=== PATIENT | male | born 1985 | race Hispanic/Latino ===

== ENCOUNTER 2019-10-10 21:41 | Emergency (ER) | payer OTHER ==
[~2019-10-10] VITALS: Ht 180.3 cm; Wt 99.8 kg
[2019-10-10] MEDS ORDERED: ONDANSETRON HCL 4 MG ORAL DISINTEGRATING TAB PO ONE (22:00)
[2019-10-10] MEDS ORDERED: IBUPROFEN 200 MG TAB PO ONE (22:00)
[2019-10-10] MEDS ORDERED: ACETAMINOPHEN 325 MG TAB PO ONE (22:00)
--- NOTE | 2019-10-10 22:09 | Emergency Department Note ---
History of Present Illnes History of Present Illness Chief Complaint: Extremity Trauma/Pain History of Present Illness This is a 34 year old male accidentally fell at work, injured his right elbow, distally. He tried to go on but the pain got worse and it got swollen . he is right handed Historian: Patient Arrival Mode: Car Rn Office Required: No Onset (how long ago): hour(s) Radiation: non-radiation Severity: severe Duration (how long): hour(s) Timing of current episode: constant Progression: worsening Chronicity: new Relieving factors: immobilization Exacerbating factors: movement Associated symptoms: denies other symptoms Treatments prior to arrival: none Past Medical/Family History Physician Review I have reviewed the patient's past medical and family history. Any updates have been documented here. Past Medical History Recent Fever: No Clinical Suspicion of Infectio: No New/Unexplained Change in Ment: No Past Medical History: None Other Surgery: right ankle surgeries Social History Smoking Cessation: Never Smoker Alcohol Use: Social Any Illegal Drug Use: No TB Exposure/Symptoms: No Physically hurt or threatened: No Family History Family history of heart diseas: No Other Any Pre-Existing Lines (PICC,: No Review of Systems Review of Systems Constitutional: no symptoms EENTM: no symptoms Cardiovascular: no symptoms Respiratory: no symptoms Gastrointestinal: no symptoms Genitourinary: no symptoms Musculoskeletal: as per HPI, joint pain, joint swelling Neurological: no symptoms Psychological: no symptoms Endocrine: no symptoms Hematological/Lymphatic: no symptoms Review of other systems All other systems reviewed and negative. Physical Exam Related Data Allergies: Coded Allergies: Penicillins (Verified Allergy, Unknown, 10/10/19) Physical Exam CONSTITUTIONAL Constitutional: well-developed, well-nourished HENT HENT: normocephalic, atraumatic, oropharynx clear/moist, nose normal HENT L/R: left ext ear normal, right ext ear normal EYES Eyes: PERRL, conjunctivae normal NECK Neck: ROM normal PULMONARY Pulmonary: effort normal, breath sounds normal CARDIOVASCULAR Cardiovascular: regular rhythm, heart sounds normal, capillary refill normal, normal rate GASTROINTESTINAL Abdominal: soft, nontender, bowel sounds normal GENITOURINARY Genitourinary: exam deferred SKIN Skin: warm, dry MUSCULOSKELETAL Musculoskeletal: tenderness, swelling, other (right elbow swelling and limitted ROM due to pain, unable to extend fully and flex at 90 degree. He keeps his right elbow at about 120 degree, radial and ulnar pulses good. Neurovascular intact distally) NEUROLOGICAL Neurological: alert, oriented x 3, no gross motor or sensory deficits PSYCHOLOGICAL Psychological: mood/affect normal, judgement normal Results Imaging Imaging results reviewed: Yes Impressions fracture of right elbow Procedures Orthopedic Splinting/Casting Side: right Upper exremity injury location: elbow Upper extremity immobilizer: volar splint Additional comments volar extended to posterior of RUE (long arm), keeping it at most comfortable position 120 degree. neurovascular in tact distally. Pt said he is much more comfortable after the splint Critical Care Time Subsequent provider I assumed direction of critical care for this patient from another provider of my specialty. Assessment & Plan Assessment & Plan Problems: (1) Closed fracture of head of right ulna (2) Acute pain due to trauma (3) Right elbow pain Assessment & Plan 34 yo YO MONTE fell at work, injured his right elbow with obvious deformity, will do xray look for fx, he will need orthopedic f/u Depart Disposition: HOME, SELF-CARE Medications in the ED Ibuprofen 600 mg NOW ONCE PO ; Start 10/10/19 at 22:00; Stop 10/10/19 at 22:01; Status UNV Ondansetron HCl 4 mg ONCE ONCE PO ; Start 10/10/19 at 22:00; Stop 10/10/19 at 22:01; Status UNV Acetaminophen 650 mg NOW ONCE PO ; Start 10/10/19 at 22:00; Stop 10/10/19 at 22:01; Status UNV Attestation Provider Attestation Case discussed with Dr Tal Heard, splint and f/u the next day Tylenol #4 Zofran 4 mg Ibuprofen 200mg AERONAUTICAL INSPECTOR risk score: no record, low risk KENNY STRATTON MD October 10, 2019 22:08
[2019-10-10] MEDS ORDERED: HYDROCODONE/APAP 5MG-325MG TAB PO ONE (22:15)
[2019-10-10] MEDS ORDERED: ONDANSETRON HCL 4 MG ORAL DISINTEGRATING TAB ONE (22:17)
[2019-10-10] MEDS ORDERED: IBUPROFEN 600 MG TAB ONE (22:17)
[2019-10-10] MEDS ORDERED: HYDROCODONE/APAP 5MG-325MG TAB ONE (22:18)
--- NOTE | 2019-10-10 23:11 | Diagnostic Imaging Report ---
Exam: Right elbow radiographs-3 views History: Status post fall. Comparison: None. Findings/Impression: There is an obliquely oriented, intraarticular fracture of the olecranon/proximal ulna. There is approximately 4 mm in maximal displacement. No evidence of dislocation. Small elbow joint effusion and surrounding soft tissue edema. Signed by: Dr. Laura Will MD on 10/10/2019 11:08 PM
== END 2019-10-10 23:10 | disposition home or self-care (01) ==
LOC: FSED 21:41
DX: S52.691A Other fracture of lower end of right ulna, initial encounter for closed fracture (principal); W18.30XA Fall on same level, unspecified, initial encounter; Y99.0 Civilian activity done for income or pay
CPT/HCPCS: Q0162

== ENCOUNTER 2019-11-02 19:35 | Inpatient (IN) | payer OTHER ==
[~2019-11-02] VITALS: Ht 180.3 cm; Wt 102.1 kg
--- OUTSIDE RECORDS SUMMARY | 2019-11-02 19:38 | XMS REPORT | Continuity of Care Document ---
Author Author [facility] t Organization [facility] Address [address] [place] [address] Phone Unavailable Care Team Providers Care Marketing Secretary Name Role Phone GISELLE JAZMYNE PCP Caridad STRATTON Attphygabrielle Unavailable Payers Payer Name Policy Type Policy Number Effective Date Expiration Date S ource Problems Condition Name Condition Details Condition Category Status Onset Date Resolution Date Last Treatment Date Treating Clinician Comments Source Acute pain due to trauma Problem Active [facility] Right elbow pain Problem Active [facility] Allergies, Adverse Reactions, Alerts Allergy Name Allergy Type Status Severity Reaction(s) Onset Date Inacti ve Date Treating Clinician Comments Source Penicillin Allergy to substance Active 2019-10-10 00:00:00 [facility] Penicillins DA Active U 2015-07-13 00:00:00 [facility] Social History Social Habit Start Date Stop Date Quantity Comments Source Sex Assigned At 1985 00:00:00 1985 00[birth year] Male [facility] Medications This patient has no known medications. Vital Signs Vital Name Observation Time Observation Value Comments Source Weight 2019-10-10 22:00:00 220 [lb_av] [facility] BMI (Body Mass Index) 2019-10-10 22:00:00 30.7 kg/m2 [facility] Procedures This patient has no known procedures. Plan of Care Planned Activity Planned Date Details Comments Source Instructions Fractures - Elbow [facility] Encounters Start Date/Time End Date/Time Encounter Type Admission Type Attendi [facility] Care Department Encounter ID Source 2019-10-10 21:41:00 2019-10-10 23:10:00 Departed Emergency Room 1 KENNY STRATTON [facility] [id number] [facility] Results Test Description Test Time Test Comments Results Result Comments Source - XR FLUOROSCOPY 0-60 MIN 2019-10-20 16:49:00 F AX: Makenzie Hensley MD [phone] [place]: St: REG -- Name: FIORDALIZA SAHA [facility] : 1985 Age/S: 34/M [address] [place] [address] Unit #: [id number] Loc: [place] [address] Phys: Makenzie Hensley MD Acct: [id number] Dis Date: Status: REG [facility] PHONE #: [phone] Exam Date: 10/20/20191648 FAX #: [phone] Reason: RIGHT ELBOW FRACTURE EXAMS: CPT CODE: [id number] XR FLUOROSCOPY 0-60 MIN 22969 Study: - XR FLUOROSCOPY 0-60 MIN 10/20/2019 4:46 PM Patient Name: FIORDALIZA SAHA MR: [id number] DATE: 10/20/2019 4:46 PM : 1985; Age: 34 years y/o Male Ordering Physician: Makenzie Hensley MD Clinical Indication: RIGHT ELBOW FRACTURE Intraprocedural fluoroscopy was provided by the Department of Radiology. Any images obtained were interpreted by the surgeon intraoperatively. Fluoroscopy time: 87.4 seconds Reference Air Kerma: 1.4 mGy SL: [id number] at 1649 Reported and signed by: Dlalas Perez D.O. CC: Makenzie Hensley MD Technologist: Soumya Le, RT(R), RTT Trnscrd Date/Time/By: 10/20/2019 (1648) : By: [email or web address] Orig Print D/T: S: 10/20/2019 (0614) PAGE 1 Signed Report Novel Coronavirus 2018 Inhouse 2019-10-18 21:33:00 Test Item Novel Coronavirus 2018 Inhouse (test code = COVNONPUI) Negative Negative BASIC METABOLIC [id number] 10:25:00* Test Item Value Reference Range Interpretation Comments SODIUM (test code = NA) 139 mEq/L 134-147 N POTASSIUM (test code = K) 4.3 mEq/L 3.4-5.0 N CHLORIDE (test code = CL) 103 mEq/L 100-108 N CARBON DIOXIDE (test code = CO2) 30 mEq/L 21-33 N ANION GAP (test code = GAP) 10 0-20 N GLUCOSE (test code = GLU) 94 mg/dL 70-110 N BLOOD UREA NITROGEN (test code = BUN) 15 mg/dL 7-18 N GLOMERULAR FILTRATION RATE (test code = GFR) 97.8 105-110 L Units of measure = ml/min/1.73 m2 CREATININE (test code = CREAT) 0.9 mg/dL 0.6-1.3 N CALCIUM (test code = CA) 9.3 mg/dL 8.0-10.5 N BASIC METABOLIC [id number] 10:20:00* Test Item Value Reference Range Interpretation Comments SODIUM (test code = NA) 139 mEq/L 134-147 N POTASSIUM (test code = K) 4.3 mEq/L 3.4-5.0 N CHLORIDE (test code = CL) 103 mEq/L 100-108 N CARBON DIOXIDE (test code = CO2) 30 mEq/L 21-33 N ANION GAP (test code = GAP) 10 0-20 N GLUCOSE (test code = GLU) 94 mg/dL 70-110 N BLOOD UREA NITROGEN (test code = BUN) 15 mg/dL 7-18 N GLOMERULAR FILTRATION RATE (test code = GFR) 105-110 CREATININE (test code = CREAT) mg/dL 0.6-1.3 CALCIUM (test code = CA) 9.3 mg/dL 8.0-10.5 N CBC W/AUTO [id number] 10:13:00* Test Item Value Reference Range Interpretation Comments WHITE BLOOD CELL (test code = WBC) 7.45 x10 3/uL 4.5-11.0 N RED BLOOD CELL (test code = RBC) 4.74 x10 6/uL 4.00-5.60 N HEMOGLOBIN (test code = HGB) 14.6 g/dL 12.5-16.9 N HEMATOCRIT (test code = HCT) 43.7 % 37.5-50.7 N MEAN CELL VOLUME (test code = MCV) 92.2 fL 81.0-99.0 N MEAN CELL HGB (test code = MCH) 30.8 pg 27.0-33.0 N MEAN CELL HGB CONCETRATION (test code = MCHC) 33.4 g/dL 33.0-37. 0 N RED CELL DISTRIBUTION WIDTH CV (test code = RDW) 11.8 % 11.5- 14.5 N RED CELL DISTRIBUTION WIDTH SD (test code = RDW-SD) 40.1 fL 37 .0-54.0 N PLATELET COUNT (test code = PLT) 244 x10 3/uL 150-400 N MEAN PLATELET VOLUME (test code = MPV) 9.2 fL 7.0-9.0 H NEUTROPHIL % (test code = NT%) 65.4 % 56.0-77.0 N IMMATURE GRANULOCYTE % (test code = IG%) 0.3 % 0.0-2.0 N LYMPHOCYTE % (test code = LY%) 22.6 % 14.0-32.0 N MONOCYTE % (test code = MO%) 8.9 % 4.8-9.0 N EOSINOPHIL % (test code = EO%) 2.3 % 0.3-3.7 N BASOPHIL % (test code = BA%) 0.5 % 0.0-2.0 N NUCLEATED RBC % (test code = NRBC%) 0.0 % 0-0 N NEUTROPHIL # (test code = NT#) 4.88 x10 3/uL 2.0-7.6 N IMMATURE GRANULOCYTE # (test code = IG#) 0.02 x10 3/uL 0.00-0.03 N LYMPHOCYTE # (test code = LY#) 1.68 x10 3/uL 1.0-3.8 N MONOCYTE # (test code = MO#) 0.66 x10 3/uL 0.1-0.8 N EOSINOPHIL # (test code = EO#) 0.17 x10 3/uL 0.0-0.2 N BASOPHIL # (test code = BA#) 0.04 x10 3/uL 0.0-0.2 N NUCLEATED RBC # (test code = NRBC#) 0.00 x10 3/uL 0.0-0.1 N MANUAL DIFF REQUIRED (test code = MDIFF) NO ELBOW 3 VIEW RT - [id number] 23:04:00 [place] [address] Patient Name: FIORDALIZA SAHA MR #: [id number] : 1985 Age/Sex: 34/M Req #: [id number] Adm Physician: Ordered by: KENNY STRATTON MD Report #: [id number] Location: [facility] Room/Bed: Procedure: [id number] HOPD/ELBOW 3 VIEW RT - HOPD Exam Date: 10/10/19 Exam Time: 2201 REPORT STATUS: [facility] History: Status post fall. Comparison: N one. Findings/Impression: There is an obliquely oriented, intraarticular fracture of the olecranon/proximal ulna. There is approximately 4 mm in connie l displacement. No evidence of dislocation. Small elbow joint effusion and zuleyma rounding soft tissue edema. Signed by: Dr. Trenton Bentley MD on 10/10/2019 11 :08 PM Dictated By: TRENTON BENTLEY MD [id number] Transcribed By: AAYUSH on 10/10/19 0064 COPY TO: KENNY OCHOA MD
--- NOTE | 2019-11-02 20:20 | NUR ---
CLEANED WOUND WITH SHANTEL HEX. INFORMED MD OF PUS POURNING FROM A SMALL OPENING OF SUTURE LINE. WOUND CX OBTAINED BY MD. NOTED 2 AREAS WITH OPENINGS WITH PUS COMING OUT. APPLIED TELFA/STERIL 4X4'S/KERLIX/MARIA ELENA WRAPS. PT TOLERATED WELL.
[2019-11-02] MEDS ORDERED: IBUPROFEN 600 MG TAB PO STA (20:54)
--- NOTE | 2019-11-02 20:54 | Emergency Department Note ---
History of Present Illnes History of Present Illness Chief Complaint: General Medicine Complaints History of Present Illness This is a 34 year old male with a history of a right ulnar fracture on 10/10/2019 status post ORIF on 10/20/2019 at [facility] by Dr. Epifanio Hensley. Patient states that he went for a 7 day follow-up which was "normal." Patient states that one week ago he began to run a low-grade fever and just not feeling well. He has some increased pain at the surgical site. He was seen again by his surgeon, who found no signs of wound infection and sent him to have a COVID test, on 10/27/2019 which was negative. Patient was seen again by orthopedics on 10/31/2019 and placed on Bactrim DS, and he has taken 4 doses so far. Patient returned to work this week, and noticed today after work that there was some bloody drainage on his dressing, which he had not seen before. He presented to the ED this evening, for evaluation of his postop surgical wound site. Patient has had a low-grade fever, just over 100, intermittently for the past 7 days. He denies any chills, nausea, vomiting, diarrhea, or rash. Historian: Patient Arrival Mode: Car Additional Treatment RETAIL BUSINESS ANALYST: Bactrim DS 1 po bid, started on 10/31/2019. Museum Director Required: No Onset (how long ago): week(s) (1) Location: right elbow Quality: throbbing Radiation: Reports non-radiation Severity: moderate Onset quality: gradual Duration (how long): week(s) (1) Timing of current episode: constant Progression: worsening Chronicity: new Context: Reports recent surgery (10/20/2019 s/p ORIF right elbow with placement of hardware) Relieving factors: none Exacerbating factors: other (pain with palpation) Associated symptoms: Reports fever/chills; Denies confusion, Denies diaphoresis, Denies nausea/vomiting, Denies rash, Denies shortness of breath Treatments prior to arrival: other (Bactrim DS) Previous service: medications given, other (surgery 10/20/2019) Past Medical/Family History Physician Review I have reviewed the patient's past medical and family history. Any updates have been documented here. Past Medical History Recent Fever: Yes Clinical Suspicion of Infectio: Yes New/Unexplained Change in Ment: No Past Medical History: None Other Surgery: R-ELBOW, R-ANKLE-, R-THUMB Social History Smoking Cessation: Never Smoker Alcohol Use: Occasional Any Illegal Drug Use: No TB Exposure/Symptoms: No Physically hurt or threatened: No Family History Family history of heart diseas: No Other Last Tetanus: UNK Any Pre-Existing Lines (PICC,: No Is patient up to date on immun: No Last Flu: NONE Last Pneumovax: NA Review of Systems Review of Systems Constitutional: Reports fever; Denies chills, Denies malaise, Denies weakness EENTM: Reports no symptoms Cardiovascular: Reports no symptoms Respiratory: Reports no symptoms Gastrointestinal: Denies diarrhea, Denies nausea, Denies vomiting Musculoskeletal: Reports joint pain (pain and swelling of right elbow), Reports joint swelling Integumentary: Reports change in color (redness of right elbow) Neurological: Reports no symptoms Psychological: Reports no symptoms Hematological/Lymphatic: Reports no symptoms Review of other systems All other systems reviewed and negative. Physical Exam Related Data Allergies: Coded Allergies: Penicillins (Verified Allergy, Unknown, 10/10/19) Triage Vital Signs Vital Signs Date Time Temp Pulse Resp B/P (MAP) Pulse Ox O2 Delivery O2 Flow Rate FiO2 11/02/19 19:50 100.8 104 Vital signs reviewed: Yes Physical Exam CONSTITUTIONAL Constitutional: Reports well-developed, Reports well-nourished; Denies ill appearing HENT HENT: Reports normocephalic, Reports atraumatic, Reports oropharynx bobbi ar/moist, Reports nose normal HENT L/R: Reports left ext ear normal, Reports right ext ear normal EYES Eyes: Reports PERRL, Reports conjunctivae normal NECK Neck: Reports ROM normal, Reports supple PULMONARY Pulmonary: Reports effort normal, Reports breath sounds normal CARDIOVASCULAR Cardiovascular: Reports regular rhythm, Reports heart sounds normal, Reports capillary refill normal, Reports normal rate; Denies murmur GASTROINTESTINAL Abdominal: Reports soft, Reports nontender, Reports bowel sounds normal GENITOURINARY Genitourinary: Reports exam deferred SKIN Skin: Reports warm, Reports erythema, Reports other (right elbow swollen with mild erythema and warmth, purulent drainage from the surgical site, with increasing amount with palpation of soft tissue surrounding the surgical site;) MUSCULOSKELETAL Musculoskeletal: Reports edema, Reports tenderness (right elbow;), Reports swelling NEUROLOGICAL Neurological: Reports alert, Reports oriented x 3 PSYCHOLOGICAL Psychological: Reports mood/affect normal Results Laboratory Laboratory UA - negative CBC - WBC = 12, H/H = 11.7/35.5; CMP - K = 3.5, Alk phos = 168, ALT = 157, AST = 93 Lab results reviewed: Yes Assessment & Plan Medical Decision Making MDM - Pt being transferred to [facility] for medical admission for post-op infection/abscess of right elbow. Dr. Szymanski is admitting, with Dr. Hensley, Orthopedist who performed surgery, consulting. I have spoken to both of these physician. Reassessment Reassessment 21:15 - called answering service for patient's Orthopedist, Dr. Hensley, to discuss case. 21:30 - discussed case, antibiotics given and wound and blood cultures obtained. She will consult on patient. Hospitalist to admit patient at [facility]. 21:45 - transfer center for [facility] contacted for transfer to [facility] 22:00 - no beds available at [facility], as they are holding patients in the ER. Will contact Dr. Hensley, to see where else she might have privileges. 22:05 - spoke iwth Dr. Hensley, who has privileges at [facility]. WIll contact Medicine infection control practitioner for admission, Dr. Szymanski. Dr. Hensley to consult 22:20 - bed secured at [facility]. 22:25 - case discussed with Dr. Szymanski, who is agreeable to admission. Dr. Lovett to consult. Assessment & Plan Final Impression: (1) Postoperative wound infection (2) Right elbow pain (3) Leukocytosis (4) Elevated liver enzymes Depart Disposition: ADMITTED (to [facility], med surg, with Dr. Szymanski.) Last Vital Signs Date Time Temp Pulse Resp B/P (MAP) Pulse Ox O2 Delivery O2 Flow Rate FiO2 11/02/19 22:55 102.8 120 18 133/68 98 Date Time Temp Pulse Resp B/P (MAP) Pulse Ox O2 Delivery O2 Flow Rate FiO2 11/02/19 19:50 100.8 104 Home Meds Active Scripts Sulfamethoxazole/Trimethoprim (BACTRIM DS TABLET) 1 Each Tablet, 1 TAB PO BID for infection for 10 Days, #20 TAB Prov:ARTI MEDRANO MD 11/02/19 Medications in the ED Vancomycin 1 gram IV ARTI MEDRANO MD Nov 02, 2019 20:54
[2019-11-02] MEDS ORDERED: SODIUM CHLORIDE 0.9% 1000ML 1,000 ML IV SCH (21:00)
[2019-11-02] MEDS ORDERED: MORPHINE SULFATE INJ 4 MG/ML INJ 1ML IV STA (21:02)
[2019-11-02] MEDS ORDERED: ONDANSETRON HCL INJ 2MG/ML 2ML 2 MG/ML VIAL IV STA (21:02)
--- NOTE | 2019-11-02 21:11 | NUR ---
INFORMED CHRISTEN SMITH OF TRANSFER TO [facility]
[2019-11-02] MEDS ORDERED: CEFAZOLIN SOD 1 GM VIAL IV SCH (21:15)
[2019-11-02] MEDS ORDERED: MORPHINE SULFATE INJ 4 MG/ML INJ 1ML ONE (21:27)
[2019-11-02] MEDS ORDERED: ONDANSETRON HCL INJ 2MG/ML 2ML 2 MG/ML VIAL ONE (21:43)
[2019-11-02] MEDS ORDERED: CEFAZOLIN SOD 1 GM/NS 50ML 50 ML IV ONE ×2 (21:45→23:12)
[2019-11-02] MEDS ORDERED: VANCOMYCIN 1GM/NS 250 ML 250 ML IV ONE (22:15)
[2019-11-02] MEDS ORDERED: SODIUM CHLORIDE FLUSH 10 ML SYR INJ PRN (22:45)
--- NOTE | 2019-11-02 22:45 | NUR ---
CALLED [facility] FOR TRANSPORT
[2019-11-02] MEDS ORDERED: ACETAMINOPHEN 325 MG TAB PO PRN (23:00)
[2019-11-02] MEDS ORDERED: IBUPROFEN 600 MG TAB PO PRN (23:00)
[2019-11-02] MEDS ORDERED: ACETAMINOPHEN 325 MG TAB PO ONE (23:00)
[2019-11-02] MEDS ORDERED: HYDROCODONE/APAP 5MG-325MG TAB PO ONE (23:00)
[2019-11-02] MEDS ORDERED: ACETAMINOPHEN 325 MG TAB ONE (23:01)
[2019-11-02] MEDS ORDERED: BACTRIM DS TAB1 EACH PO (23:04)
--- OUTSIDE RECORDS SUMMARY | 2019-11-02 23:09 | XMS REPORT | Continuity of Care Document ---
Author Author [facility] t Organization [facility] Address [address] [place] [address] Phone Unavailable Care Team Providers Care First Dyer Name Role Phone GISELLE JAZMYNE PCP Caridad STRATTON Attphygabrielle Unavailable Payers Payer Name Policy Type Policy Number Effective Date Expiration Date S ource Problems Condition Name Condition Details Condition Category Status Onset Date Resolution Date Last Treatment Date Treating Clinician Comments Source Acute pain due to trauma Problem Active [facility] Right elbow pain Problem Active [facility] Allergies, Adverse Reactions, Alerts Allergy Name Allergy Type Status Severity Reaction(s) Onset Date Inacti ve Date Treating Clinician Comments Source Penicillin Allergy to substance Active 2019-10-10 00:00:00 [facility] Penicillins DA Active U 2015-07-13 00:00:00 [facility] Social History Social Habit Start Date Stop Date Quantity Comments Source Sex Assigned At 1985 00:00:00 1985 00[birth year]:00 Male [facility] Medications This patient has no known medications. Vital Signs Vital Name Observation Time Observation Value Comments Source Weight 2019-10-10 22:00:00 220 [lb_av] [facility] BMI (Body Mass Index) 2019-10-10 22:00:00 30.7 kg/m2 [facility] Procedures This patient has no known procedures. Plan of Care Planned Activity Planned Date Details Comments Source Instructions Fractures - Elbow [facility] Encounters Start Date/Time End Date/Time Encounter Type Admission Type Attendi [facility] Care Department Encounter ID Source 2019-10-10 21:41:00 2019-10-10 23:10:00 Departed Emergency Room 1 KENNY STRATTON [facility] [id number] [facility] Results Test Description Test Time Test Comments Results Result Comments Source - XR FLUOROSCOPY 0-60 MIN 2019-10-20 16:49:00 F AX: Makenzie Hensley MD [phone] [place]: St: REG -- Name: FIORDALIZA SAHA [facility] : 1985 Age/S: 34/M [address] [place] [address] Unit #: [id number] Loc: [place] [address] Phys: Makenzie Hensley MD Acct: [id number] Dis Date: Status: REG [facility] PHONE #: [phone] Exam Date: 10/20/20191648 FAX #: [phone] Reason: RIGHT ELBOW FRACTURE EXAMS: CPT CODE: [id number] XR FLUOROSCOPY 0-60 MIN 30771 Study: - XR FLUOROSCOPY 0-60 MIN 10/20/2019 4:46 PM Patient Name: FIORDALIZA SAHA MR: [id number] DATE: 10/20/2019 4:46 PM : 1985; Age: 34 years y/o Male Ordering Physician: Makenzie Hensley MD Clinical Indication: RIGHT ELBOW FRACTURE Intraprocedural fluoroscopy was provided by the Department of Radiology. Any images obtained were interpreted by the surgeon intraoperatively. Fluoroscopy time: 87.4 seconds Reference Air Kerma: 1.4 mGy SL: [id number] at 1649 Reported and signed by: [place] Perez D.O. CC: Makenzie Hensley MD Technologist: Soumya Le, RT(R), RTT Trnscrd Date/Time/By: 10/20/2019 (1648) : By: [email or web address] Orig Print D/T: S: 10/20/2019 (5475) PAGE 1 Signed Report Novel Coronavirus 2018 Inhouse 2019-10-18 21:33:00 Test Item Novel Coronavirus 2018 Inhouse (test code = COVNONPUI) Negative Negative BASIC METABOLIC [id number] 10:25:00* Test Item Value Reference Range Interpretation [...] CA) 9.3 mg/dL 8.0-10.5 N BASIC METABOLIC [id number] 10:20:00* Test Item Value Reference Range Interpretation [...] CA) 9.3 mg/dL 8.0-10.5 N CBC W/AUTO [id number] 10:13:00* Test Item Value Reference Range Interpretation [...] MDIFF) NO ELBOW 3 VIEW RT - [id number] 23:04:00 [place] [address] Patient Name: FIORDALIZA SAHA MR #: [id number] : 1985 Age/Sex: 34/M Req #: [id number] Adm Physician: Ordered by: KENNY STRATTON MD Report #: [id number] Location: [facility] Room/Bed: Procedure: [id number] HOPD/ELBOW 3 VIEW RT - HOPD Exam Date: 10/10/19 Exam Time: 2201 REPORT STATUS: [facility] History: Status post fall. Comparison: N one. Findings/Impression: There is an obliquely oriented, intraarticular fracture of the olecranon/proximal ulna. There is approximately 4 mm in connie l displacement. No evidence of dislocation. Small elbow joint effusion and zuleyma rounding soft tissue edema. Signed by: Dr. Trenton Bentley MD on 10/10/2019 11 :08 PM Dictated By: TRENTON BENTLEY MD 2992 Transcribed By: AAYUSH on 10/10/19 3813 COPY TO: KENNY OCHOA MD
--- NOTE | 2019-11-02 23:15 | NUR ---
COVID TEST SWAB OBTAINED WEARING APPROPRIATE PPE. CALLED FOR ROD WELDER
--- NOTE | 2019-11-02 23:25 | NUR ---
ATTEMPTED TO CALL REPORT AT THIS TIME. JILL HERNESTO IN WITH ANOTHER PT AND WILL CALL BACK FOR REPORT
--- NOTE | 2019-11-02 23:32 | NUR ---
REC'D CALL BACK FROM JILL ERIC. REPORT GIVEN.
[2019-11-03] VITALS (8 sets, daily range): BP systolic 107–116; BP diastolic 68–80
--- NOTE | 2019-11-03 00:05 | NUR ---
REPORTED TO EMS. COVID TEST SENT WITH COMBER FIXER.
[2019-11-03] MEDS: SODIUM CHLORIDE 0.9% 1000ML 1,000 ML IV SCH ×2 (00:37→13:12)
--- NOTE | 2019-11-03 01:00 | NUR ---
patient received to room 296 via stretcher from [facility]. pain minimal at this time. ivf infusing without difficulty. clarisse wrap/brace noted to right elbow. patient encouraged to keep right arm elevated to reduce swelling. admit assessment/history obtained. patient instructed of npo status for incision and drainage right elbow tomorrow. consent obtained for I+D and placed on chart. call morgan placed within reach. patient instructed to call for assistance when needed.
[2019-11-03] MEDS: MORPHINE SULFATE 2 MG/ML SYR 1ML IV PRN ×4 (01:40→22:14)
[2019-11-03] MEDS: ONDANSETRON HCL INJ 2MG/ML 2ML 2 MG/ML VIAL IV PRN ×4 (01:40→22:14)
--- NOTE | 2019-11-03 01:40 | NUR ---
patient medicated with morphine 4mg and zofran 4mg for c/o right elbow pain at this time. right elbow remains elevated.
[2019-11-03 06:21] LABS: BASOPHILS # (AUTO) 0.1 (0.0-0.1); BASOPHILS % 0.5 % (0.0-1.0); EOSINOPHILS # (AUTO) 0.2 (0.0-0.4); EOSINOPHILS % 2.3 % (0.0-6.0); HEMATOCRIT 34.1 % (38.2-49.6); HEMOGLOBIN 11.1 g/dL (14.0-18.0); LYMPHOCYTES # (AUTO) 1.9 (1.0-3.2); LYMPHOCYTES % 18.2 % (18.0-39.1); MEAN CORPUSCULAR HEMOGLOBIN 30.3 pg (28-32); MEAN CORPUSCULAR HGB CONC 32.6 g/dL (31-35); MEAN CORPUSCULAR VOLUME 93.2 fL (81-99); MONOCYTES # (AUTO) 1.2 (0.2-0.8); NEUTROPHILS # (AUTO) 6.8 (2.1-6.9); NEUTROPHILS % 66.3 % (38.7-80.0); PLATELET COUNT 303 x10e3/uL (140-360); RED BLOOD COUNT 3.66 x10e6/uL (4.3-5.7)
[2019-11-03 06:42] LABS: INR 0.89; PROTHROMBIN TIME 12.6 seconds (11.9-14.5)
[2019-11-03 06:43] LABS: PARTIAL THROMBOPLASTIN TIME 39.4 seconds (23.8-35.5)
[2019-11-03 06:53] LABS: ALANINE AMINOTRANSFERASE 139 IU/L (0-55); ALBUMIN 2.8 g/dL (3.5-5.0); ALBUMIN/GLOBULIN RATIO 0.8 (0.8-2.0); ALKALINE PHOSPHATASE 154 IU/L (40-150); ANION GAP 13.9 mmol/L (8-16); BLOOD UREA NITROGEN 8 mg/dL (7-26); BUN/CREATININE RATIO 10 (6-25); CALCIUM 9.2 mg/dL (8.4-10.2); CARBON DIOXIDE 22 mmol/L (22-29); CHLORIDE 108 mmol/L (98-107); EST GLOMERULAR FILTRATION RATE > 60 ML/MIN (60-); GLUCOSE 103 mg/dL (74-118); POTASSIUM 3.9 mmol/L (3.5-5.1); SODIUM 140 mmol/L (136-145)
--- NOTE | 2019-11-03 07:30 | NUR ---
PT UP IN BED DENIES PAIN NO DISTRESS NTOED.
--- NOTE | 2019-11-03 10:00 | NUR ---
PT TRANSPORTED TO OR VIA STRETCHER.
[2019-11-03] MEDS ORDERED: BACITRACIN 50,000 UNIT VIAL ONE ×2 (10:11→10:56)
[2019-11-03] MEDS ORDERED: VANCOMYCIN HCL 1 GM VIAL ONE (11:01)
[2019-11-03] MEDS ORDERED: FENTANYL CITRATE/PF 100MCG/2 ML INJ ONE ×2 (11:48→13:47)
--- NOTE | 2019-11-03 12:38 | Consultation ---
DATE OF CONSULTATION: 11/03/2019 CONSULTING PHYSICIAN: Makenzie Hensley MD CHIEF COMPLAINT: Right elbow pain. HISTORY OF PRESENT ILLNESS: Hitesh Haskins has been seen in consultation at the request of Dr. Szymanski for evaluation of right elbow pain. Hitesh underwent an open reduction and internal fixation of his right displaced olecranon fracture by me on 10/20/2019 over at [facility]. He presented to our clinic approximately one week later with increased pain; however, was not noted to have any signs of postop infection at that time. He was then seen in clinic approximately one week afterwards at which point he was noted to have some faint erythema at his incisional site and Bactrim DS prescription was started. The patient reports that after starting that prescription he started to feel lot better after receiving about 4 doses of this. However, yesterday when he was at work, he started to notice some drainage from his elbow. He did have his sutures removed two days ago. He then presented to the emergency department where he was seen and transferred over to [facility] for further evaluation and care. He was started on vancomycin and Ancef while he was there as well. He reports that he is starting to feel significantly better after been started on IV antibiotics as well. No numbness or tingling into his finger. He says that his swelling and the redness has improved markedly over just a past few hours. PAST MEDICAL HISTORY: None. PAST SURGICAL HISTORY: Orthopedic surgery. 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 No smoking, drug or tobacco use. FAMILY HISTORY: Noncontributory. REVIEW OF SYSTEMS: Positive for fevers and chills, negative for numbness and tingling. PHYSICAL EXAMINATION: GENERAL: Well appearing, no acute distress. Alert and oriented x3. EXTREMITIES: Physical evaluation of the right upper extremity demonstrates dressing removed. Very mild erythema about the right elbow. Sutures have been removed from the right elbow with Steri-Strips in place; however copious drainage noted from the mid portion of the incision with purulent drainage. Tenderness about the incision. No significant pain with any gentle range of motion of the elbow. He is neurovascularly intact with intact AIN, PIN, and ulnar nerve motor function. Sensation intact to light touch to median, radial and ulnar nerve distributions. Fingers are warm and well perfused. IMAGING DATA: None. LABORATORY DATA: Laboratory evaluations demonstrates leukocytosis of 12.1. ASSESSMENT: Right elbow, postop infection, status post open reduction and internal fixation of the olecranon fracture, date of surgery 10/20/2019. PLAN: I discussed with the patient that after evaluation of his right elbow with continued pain and drainage, I recommend irrigation and debridement of the right elbow. We will plan for this to be done today. Benefits and risks of surgery were discussed with the patient, including bleeding, continued infection, need for additional surgery, damage to vascular structures, possible loss of life or limb, and knowing this elected to proceed. Consent was obtained. We will obtain cultures intraoperatively. We recommend Infectious Disease consult for further evaluation for antibiotics. We will continue to follow. MD GIA Gibson/MODL /[id number] MTDD
[2019-11-03] MEDS ORDERED: VANCOMYCIN 1GM/NS 250 ML 250 ML IV SCH (13:00)
--- NOTE | 2019-11-03 13:27 | Operative Report ---
DATE OF PROCEDURE: 11/03/2019 SURGEON: Makenzie Hensley MD ADDITIONAL ATTENDING PHYSICIAN: Makenzie Hensley MD PREPROCEDURAL DIAGNOSIS: Right elbow, postop infection. POSTPROCEDURAL DIAGNOSIS: Right elbow, postop infection. PROCEDURE PERFORMED: Right elbow irrigation and debridement of skin, subcutaneous tissue, muscle and fascia. LONG HAUL TRUCK DRIVER: None. ANESTHESIA: General. COMPLICATIONS: None. SPECIMENS: Right elbow specimen sent for anaerobic and aerobic culture. ESTIMATED BLOOD LOSS: Less than 50 mL. INDICATIONS FOR PROCEDURE: Hitesh Haskins is a 34-year-old male, who sustained a right olecranon fracture, underwent open reduction and internal fixation on 10/12/2019. He was subsequently found to have developed fevers as well as drainage from his right wound and was seen in the emergency department where he was found to have purulent drainage. He was indicated for incision and debridement. Benefits and risks of the surgery were discussed with the patient including bleeding, infection, damage to vascular structure, need for additional surgery, persistent pain, stiffness, possible loss of life or limb and knowing this, he elected to proceed. DESCRIPTION OF PROCEDURE: The patient was identified in the preoperative holding area site was marked. He was then transported to the operating room anesthesia was induced. He was placed supine to the table with to the hand table. Right upper extremity was then prepped and draped in usual sterile fashion. Preoperative antibiotics had already been given. A preprocedural timeout was called and all were in agreement and began. We used the hemostat to open up the region of draining tissue directly over the incision and the incision opened readily. Purulent fluid as well as some cloudy-appearing debris was noted to exude from the wound. This was then collected for culture. A curette was used to debride the tissue and any devitalized appearing tissue was then removed. Copious irrigation was then performed using 6 liters of normal saline with bacitracin with cysto tubing irrigation. After this was performed we then changed hemostasis. 1 g vancomycin powder was then placed into the soft tissue bed. The skin was then closed with 2-0 and 3-0 nylons. A Hemovac drain was placed prior to this. Soft sterile dressing was placed followed by a posterior elbow splint. The patient then awoken from anesthesia and taken to PACU in stable condition. POSTOPERATIVE PLAN: The patient will be returned back to his room. We will obtain Infectious Disease consult for assistance of the antibiotics. Plan for drain to be pulled tomorrow. MD GIA Gibson/JOE /[id number]
[2019-11-03] MEDS ORDERED: MIDAZOLAM HCL 2 MG/2 ML VIAL ONE (13:47)
[2019-11-03] MEDS ORDERED: KETOROLAC TROMETHAMINE 30 MG/ML VIAL ONE (14:04)
[2019-11-03] MEDS ORDERED: SEVOFLURANE INHAL SOLN 250 ML PEN BTL ONE (14:04)
[2019-11-03] MEDS ORDERED: LIDOCAINE HCL 2% LOCAL INJ 5 ML SDV VIAL INJ ONE (14:04)
[2019-11-03] MEDS ORDERED: DEXAMETHASONE SOD PHOS INJ 4 MG/ML VIAL ONE (14:04)
[2019-11-03] MEDS ORDERED: ONDANSETRON HCL INJ 2MG/ML 2ML 2 MG/ML VIAL ONE (14:04)
[2019-11-03] MEDS ORDERED: PROPOFOL IV EMULSION 10 MG/ML 20 ML VIAL ONE (14:04)
--- NOTE | 2019-11-03 18:06 | NUR ---
PT UP IN BED ,PAIN LEVEL 3 ,RT ELBOW ELEVATED ON PILLOW,
[2019-11-03] MEDS: HYDROCODONE/APAP 7.5MG-325MG 1 EA TAB PO PRN (18:41)
[2019-11-03] MEDS: CEFEPIME 2 GM/NS 0.9% 100 ML 100 ML IV SCH (18:41)
--- NOTE | 2019-11-03 19:25 | NUR ---
REceived patient awake, not in distress, call light within easy reach, advised to call for assistance when needed, right elbow elevated with pillows, hemovac drain noted, will continue to monitor patient
--- NOTE | 2019-11-03 23:01 | NUR ---
PICC line placement, CXR to verify placement done
--- NOTE | 2019-11-03 23:28 | Diagnostic Imaging Report ---
EXAMINATION: CHEST XRAY LINE PLACEMENT INDICATION: ^verify PICC line placement ^[id number] ^[id number] COMPARISON: Left PICC in place with tip projecting over inferior SVC. FINDINGS: AP view TUBES and LINES: None. LUNGS: Lungs are well inflated. There is no evidence of pneumonia or pulmonary edema. PLEURA: No pleural effusion or pneumothorax. HEART AND MEDIASTINUM: The cardiomediastinal silhouette is unremarkable. BONES AND SOFT TISSUES: No acute osseous lesion. Soft tissues are unremarkable. UPPER ABDOMEN: No free air under the diaphragm. IMPRESSION: No acute thoracic abnormality. Left PICC in place with tip projecting over inferior SVC. No visible pneumothorax. Signed by: Dr. Teodoro Solano MD on 11/03/2019 11:25 PM
[2019-11-04] VITALS (8 sets, daily range): BP systolic 131–145; BP diastolic 62–88
[2019-11-04] MEDS: VANCOMYCIN HCL 1.25 GM in SODIUM CHLORIDE 0.9% 250ML 250 ML IV SCH ×2 (00:01→12:01)
[2019-11-04] MEDS: HYDROCODONE/APAP 7.5MG-325MG 1 EA TAB PO PRN ×2 (00:38→15:15)
[2019-11-04] MEDS ORDERED: VANCOMYCIN 750MG/NS 150ML IVPB 250 ML IV SCH (01:00)
[2019-11-04] MEDS: SODIUM CHLORIDE 0.9% 1000ML 1,000 ML IV SCH ×3 (01:17→15:04)
[2019-11-04] MEDS: ZOLPIDEM TARTRATE 10 MG TAB PO PRN ×2 (01:17→20:38)
--- NOTE | 2019-11-04 05:41 | Consultation ---
DATE OF CONSULTATION: 11/03/2019 REASON FOR CONSULTATION: Right elbow infection. HISTORY OF PRESENT ILLNESS: This is a very pleasant 34-year-old male, who had a fractured to his arm when at work. He works in . On 10/20/2019, he had displaced olecranon fracture, underwent surgery by Dr. Makenzie Hensley. The patient had to have plate and screws. Postop, he was doing well. He, a week ago, started to have some redness and swollen. So, he was given oral Bactrim, but he started to have drainage from the elbow, so the patient came here, the [facility] where he is being admitted. PAST MEDICAL HISTORY: Denies. PAST SURGICAL HISTORY: As above. ALLERGIES: NKA. SOCIAL HISTORY: There is no smoking, drug abuse, or alcohol abuse. 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 FAMILY HISTORY: Noncontributory. REVIEW OF SYSTEMS: He is currently lying in bed comfortably. HEENT: Negative. PULMONARY: Negative. The patient was admitted and underwent surgery. He was found to have right elbow infection. Culture was sent. The procedure note was reviewed. His cultures are still pending. PHYSICAL EXAMINATION: GENERAL: Currently alert and oriented. Does not seem to be in acute distress. VITAL SIGNS: Stable. Currently afebrile. HEENT: Is not icteric. NECK: Supple. CHEST: Clear. HEART: S1 and S2. No murmur. ABDOMEN: Soft. LABORATORY DATA: Reviewed sodium 140, potassium 3.9. His AST 55, his ALT 139, albumin 2.8. His white count 10, hemoglobin 11. Creatinine 0.8. He underwent surgery. IMPRESSION: Postoperative infection, status post right elbow fracture in October 19 with placement of hardware, concerned about osteomyelitis with hardware infection. We will treat as such. We will put on vancomycin and cefepime. Vancomycin 15 mg/kg q.12 and cefepime 1 g q.8. The patient did well with cefazolin. We will get a PICC line. Would need 8 weeks of IV antibiotic. Weekly CBC. Weekly Chem panel. Follow up closely. Obtain a sedimentation rate C-reactive protein. We will follow. MD J CARLOS Shelton/JOE /[id number]
[2019-11-04] MEDS: ONDANSETRON HCL INJ 2MG/ML 2ML 2 MG/ML VIAL IV PRN ×3 (05:48→20:33)
[2019-11-04] MEDS: CEFEPIME 2 GM/NS 0.9% 100 ML 100 ML IV SCH ×2 (05:48→18:29)
[2019-11-04] MEDS: MORPHINE SULFATE 2 MG/ML SYR 1ML IV PRN ×3 (05:50→20:33)
--- NOTE | 2019-11-04 06:00 | NUR ---
Ok to use PICC line per Dr. Szymanski, order in the chart
[2019-11-04 06:55] LABS: BASOPHILS % 0.4 % (0.0-1.0); EOSINOPHILS # (AUTO) 0.2 (0.0-0.4); EOSINOPHILS % 1.5 % (0.0-6.0); HEMATOCRIT 29.4 % (38.2-49.6); HEMOGLOBIN 9.3 g/dL (14.0-18.0); LYMPHOCYTES % 18.4 % (18.0-39.1); MEAN CORPUSCULAR HEMOGLOBIN 29.2 pg (28-32); MEAN CORPUSCULAR HGB CONC 31.6 g/dL (31-35); MEAN CORPUSCULAR VOLUME 92.5 fL (81-99); MONOCYTES # (AUTO) 0.8 (0.2-0.8); NEUTROPHILS # (AUTO) 7.9 (2.1-6.9); NEUTROPHILS % 71.7 % (38.7-80.0); PLATELET COUNT 352 x10e3/uL (140-360); RED BLOOD COUNT 3.18 x10e6/uL (4.3-5.7); RED CELL DISTRIBUTION WIDTH 11.9 % (11.7-14.4)
--- NOTE | 2019-11-04 07:10 | NUR ---
Received patient lying in bed with eyes open. Respiration even and unlabored without SOB. Call light in reach.
--- NOTE | 2019-11-04 07:33 | NUR ---
walking rounds done with mihir RN, call light within easy reach
[2019-11-04 07:36] LABS: ALANINE AMINOTRANSFERASE 156 IU/L (0-55); ALBUMIN 2.7 g/dL (3.5-5.0); ALBUMIN/GLOBULIN RATIO 0.8 (0.8-2.0); ALKALINE PHOSPHATASE 145 IU/L (40-150); BLOOD UREA NITROGEN 11 mg/dL (7-26); BUN/CREATININE RATIO 15 (6-25); CALCIUM 8.5 mg/dL (8.4-10.2); CARBON DIOXIDE 24 mmol/L (22-29); CHLORIDE 107 mmol/L (98-107); CREATININE, SERUM 0.71 mg/dL (0.72-1.25); EST GLOMERULAR FILTRATION RATE > 60 ML/MIN (60-); GLUCOSE 108 mg/dL (74-118); SODIUM 139 mmol/L (136-145)
--- NOTE | 2019-11-04 13:13 | Progress Note ---
DATE: SUBJECTIVE: The patient is seen and evaluated. Available labs and notes reviewed. Long discussion with the patient in regard to findings on wound culture and antibiotic plan as outpatient. REVIEW OF SYSTEMS: No nausea, vomiting, fever, chills, chest pain, shortness of breath, headache, rash, dysuria. Pain seems to be controlled. PHYSICAL EXAMINATION: VITAL SIGNS: Temperature 98.7, pulse is 71, respiration 18, and blood pressure 136/67. GENERAL: Alert and oriented, no acute distress. CV: S1, S2. CHEST: Equal expansion. Clear to auscultation. No acute distress. ABDOMEN: Soft and nontender. No distention. HEENT: Moist. No pallor. No JVD. EXTREMITIES: Right upper extremity dressed and elevated. MEDICATIONS: Medication list reviewed. As far as Infectious Disease point of view, the patient is on cefepime and vancomycin IV. LABORATORY STUDIES: White count of 11.07, hemoglobin 9.3, platelet 352. Sodium 139, potassium 4, creatinine 0.71. Serology: Novel coronavirus PCR on 11/01 is pending. Microbiology; blood cultures negative 24 hours. Wound culture from right upper extremity showed few gram-positive cocci in chains, 10-25/LPF. Recheck wound culture from 11/03/2019 is pending. RADIOLOGY STUDIES: Status post PICC line placement. ASSESSMENT AND PLAN: Status post fall and a fracture of right upper extremity. Apparently, the patient had surgery done with hardware placement and postop infection. The patient received another I and D of the right elbow on 11/03/2019 at 11:30 with vancomycin powder and placement of a drainage in the right upper extremity. The cultures as mentioned above showing gram-positive cocci in the wound culture, currently on vancomycin IV and cefepime. Pain seems to be controlled. The plan is to discharge the patient as out with IV antibiotic, daptomycin 500 mg IV piggyback daily for a total of eight weeks. This antibiotic has been set up by the office of Dr. Shauna Butler. We will notify the Case Management when antibiotics are set up and ready to go. Please refer to chart for more information and discussed with Dr. Butler in details. Dictated by Mark Fontenot PA-C (Al) MD JENNY Shelton/JOE /[id number]
--- NOTE | 2019-11-04 15:33 | Progress Note ---
DATE: 11/04/2019 CONSULTING PHYSICIAN: Makenzie Hensley MD CHIEF COMPLAINT: Right elbow pain. HISTORY OF PRESENT ILLNESS: Hitesh Haskins is a 34-year-old male, who is postop day 1, status post I and D of his right postop elbow infection, status post ORIF of right olecranon fracture on 10/20/2019. The patient . He denies any fevers or chills. He said his pain is improving. No complaints. PHYSICAL EXAMINATION: EXTREMITIES: Evaluation of the right upper extremities demonstrates the splint intact. He has intact AIN, PIN, and ulnar nerve motor function. Sensation intact to light touch to median, radial and ulnar nerve distributions. Fingers are warm and well perfused. Hemovac drain is in place, draining bloody serosanguinous fluid. LABORATORY DATA: White blood cell count 11.07. Wound culture from intraoperative cultures growing staph aureus. ASSESSMENT: Postop day 1 status post right elbow irrigation and debridement for postop elbow infection, status post olecranon fracture 10/20/2019. PLAN: Doing well postop. Appreciate infectious disease assistance with antibiotic selection. The patient has PICC line already. Okay to discharge whenever appropriate per primary team and Infectious Disease. Order given for nurses to before discharge. He will keep his splint clean, dry and intact. We will see him back in clinic in 5 days for repeat evaluation. MD GIA Gibson/MODL /[id number]
--- NOTE | 2019-11-04 19:50 | NUR ---
RECEIVED PT IN BED AOX3 RT ELBOW WOUND INFECTION RT ELBOW WITH DRESSING AND WOUND VAC LEFT UPPER ARM PICC LINE . PT C/O PAIN CALL LIGHT WITH IN REACH .CONTINUE TO CARE
[2019-11-05] VITALS (8 sets, daily range): BP systolic 124–148; BP diastolic 67–83
[2019-11-05] MEDS: HYDROCODONE/APAP 7.5MG-325MG 1 EA TAB PO PRN ×4 (00:29→21:11)
[2019-11-05] MEDS: SODIUM CHLORIDE 0.9% 1000ML 1,000 ML IV SCH ×3 (03:11→21:11)
[2019-11-05] MEDS: MORPHINE SULFATE 2 MG/ML SYR 1ML IV PRN ×2 (03:15→11:20)
[2019-11-05] MEDS: CEFEPIME 2 GM/NS 0.9% 100 ML 100 ML IV SCH ×2 (06:15→17:44)
--- NOTE | 2019-11-05 06:21 | NUR ---
PT C/O PAIN AT RT ELBOW .GIVEN ORDERED PAIN MEDICATION .CALL LIGHT WITH IN REACH .CONTINUE TO MONITOR
--- NOTE | 2019-11-05 07:08 | NUR ---
BEDSIDE REPORT GIVEN TO THE ONCOMING NURSE.
[2019-11-05 07:09] LABS: BASOPHILS # (AUTO) 0.1 (0.0-0.1); BASOPHILS % 0.7 % (0.0-1.0); EOSINOPHILS # (AUTO) 0.2 (0.0-0.4); EOSINOPHILS % 3.1 % (0.0-6.0); HEMATOCRIT 32.3 % (38.2-49.6); HEMOGLOBIN 10.2 g/dL (14.0-18.0); LYMPHOCYTES # (AUTO) 2.4 (1.0-3.2); MEAN CORPUSCULAR HEMOGLOBIN 29.7 pg (28-32); MEAN CORPUSCULAR HGB CONC 31.6 g/dL (31-35); MEAN CORPUSCULAR VOLUME 94.2 fL (81-99); MONOCYTES # (AUTO) 0.6 (0.2-0.8); MONOCYTES % 8.2 % (4.4-11.3); NEUTROPHILS # (AUTO) 3.3 (2.1-6.9); NEUTROPHILS % 49.6 % (38.7-80.0); PLATELET COUNT 346 x10e3/uL (140-360); RED BLOOD COUNT 3.43 x10e6/uL (4.3-5.7); RED CELL DISTRIBUTION WIDTH 11.9 % (11.7-14.4)
[2019-11-05 07:38] LABS: ALANINE AMINOTRANSFERASE 153 IU/L (0-55); ALBUMIN 2.7 g/dL (3.5-5.0); ALBUMIN/GLOBULIN RATIO 0.8 (0.8-2.0); ALKALINE PHOSPHATASE 112 IU/L (40-150); ANION GAP 11.1 mmol/L (8-16); BLOOD UREA NITROGEN 10 mg/dL (7-26); BUN/CREATININE RATIO 14 (6-25); CALCIUM 9.2 mg/dL (8.4-10.2); CARBON DIOXIDE 26 mmol/L (22-29); CHLORIDE 107 mmol/L (98-107); CREATININE, SERUM 0.71 mg/dL (0.72-1.25); EST GLOMERULAR FILTRATION RATE > 60 ML/MIN (60-); GLUCOSE 91 mg/dL (74-118); POTASSIUM 4.1 mmol/L (3.5-5.1); SODIUM 140 mmol/L (136-145)
--- NOTE | 2019-11-05 10:22 | Progress Note ---
DATE: SUBJECTIVE: The patient is seen and evaluated. Available labs and notes reviewed. REVIEW OF SYSTEMS: No nausea, vomiting, fever, chills, chest pain, shortness of breath, headache, rash, or dysuria. Tolerating antibiotics okay. is in the room. No new complaints. No diarrhea. PHYSICAL EXAMINATION: VITAL SIGNS: Temperature is 97.9, pulse 68, respirations 16, and blood pressure 140/83. Fever resolved. GENERAL: Alert and oriented. No acute distress. CV: S1 and S2. CHEST: Equal expansion. Clear to auscultation. No acute distress. HEENT: Moist. No pallor. No JVD. EXTREMITIES: Right upper extremity surgical site dressed with a Hemovac. MEDICATIONS: Medication list reviewed and from ID point of view, the patient is on cefepime and vancomycin IV. MICROBIOLOGY: Wound culture showed MSSA. ALLERGIES: THE PATIENT IS ALLERGIC TO PENICILLIN. RADIOLOGY STUDIES: The patient is status post PICC line placement. ASSESSMENT AND PLAN: This is a 34-year-old gentleman, had a fall at work, which he works for a [employer] company and he had a fall on solid concrete, had a surgery done and redo for I and D of the right elbow on 11/03/2019. Plan is to go home with daptomycin 500 mg IV piggyback for a total of 8 weeks. Antibiotics are being set up at office of Dr. Shauna Butler, Infectious Disease. Please refer to chart for more information. Discussed with Dr. Butler in details. Dictated by Mark Fontenot PA-C (Al) Shauna Butler MD /MODL /[id number]
[2019-11-05] MEDS: ONDANSETRON HCL INJ 2MG/ML 2ML 2 MG/ML VIAL IV PRN (11:20)
[2019-11-05] MEDS: VANCOMYCIN HCL 1.25 GM in SODIUM CHLORIDE 0.9% 250ML 250 ML IV SCH ×3 (12:52)
--- NOTE | 2019-11-05 19:13 | NUR ---
Report given to night nurse. Respiration even and unlabored without SOB. left upper arm PICC intact, in placed. Call light in reach.
--- NOTE | 2019-11-05 19:47 | NUR ---
RECEIVED PT IN BED AOX3 RT ELBOW WITH DRESSING AND HEMO VAC LEFT UPPER ARM PICC LINE . PT C/O PAIN CALL LIGHT WITH IN REACH .CONTINUE TO CARE
[2019-11-05] MEDS: ZOLPIDEM TARTRATE 10 MG TAB PO PRN (21:10)
[2019-11-06] VITALS (8 sets, daily range): BP systolic 129–138; BP diastolic 76–90
[2019-11-06] MEDS: VANCOMYCIN HCL 1.25 GM in SODIUM CHLORIDE 0.9% 250ML 250 ML IV SCH ×2
[2019-11-06] MEDS: MORPHINE SULFATE 2 MG/ML SYR 1ML IV PRN ×3 (00:50→21:30)
--- NOTE | 2019-11-06 05:08 | NUR ---
PT C/O PAIN DURING THE NIGHT AND GIVEN MORPHINE AND NORCO .PT RESTING .CONTINUE TO MONITOR
[2019-11-06] MEDS: CEFEPIME 2 GM/NS 0.9% 100 ML 100 ML IV SCH (05:47)
--- NOTE | 2019-11-06 07:16 | NUR ---
Received patient lying in bed with eyes open. Respiration even and unlabored without SOB. Call light in reach. Addendum: 11/06/19 at 0750 by Gosia Barnett RN Left upper arm picc line intact, in placed dressing dry, clean and intact with no s/s of infection.
--- NOTE | 2019-11-06 07:22 | NUR ---
BEDSIDE REPORT GIVEN TO THE ONCOMING NURSE
[2019-11-06] MEDS ORDERED: VANCOMYCIN HCL 1.5 GM in SODIUM CHLORIDE 0.9% 250ML 300 ML IV SCH (12:00)
--- NOTE | 2019-11-06 12:47 | Progress Note ---
DATE: SUBJECTIVE: The patient is seen and evaluated. Available labs and notes reviewed. Discussed with the family. Discussed with the patient. REVIEW OF SYSTEMS: No nausea, vomiting, fever, chills, chest pain, shortness of breath, headache, rash, dysuria, or polyuria. Pain is controlled. PHYSICAL EXAMINATION: VITAL SIGNS: Temperature 97.4, pulse 68, respirations 16, and blood pressure 138/90. GENERAL: Alert and oriented. No acute distress. CV: S1 and S2. CHEST: Equal expansion. Clear to auscultation. No acute distress. ABDOMEN: Soft and nontender. No distention. EXTREMITIES: Right upper extremity dressed with drainage percutaneous drain tube and elevated. MEDICATIONS: Medication list reviewed and from ID point of view, the patient is on cefepime and vancomycin IV. LABORATORY STUDIES: White count of 6.7 with hemoglobin 10.2 and platelet 346 on 11/04. Vancomycin trough is 6.7 with creatinine level of 0.71, sodium 140, and potassium 4.1. MICROBIOLOGY: Wound culture showed MSSA. RADIOLOGY STUDIES: No new radiology studies available. ASSESSMENT AND PLAN: A 34-year-old gentleman, status post fall, fracture of right upper extremity. The patient had couple of surgeries, recent I and D was done on 11/03/2019. Plan to go home with daptomycin 500 mg IV piggyback daily for 8 weeks. We will continue with antibiotics and pending insurance authorization from [employer] comp for home IV antibiotics. Please refer to chart for more information. Dictated by Mark Fontenot PA-C (Al) Shauna Butler MD /MODL /[id number]
[2019-11-06] MEDS: SODIUM CHLORIDE 0.9% 1000ML 1,000 ML IV SCH ×2 (13:01→16:47)
[2019-11-06] MEDS: DAPTOMYCIN 500mg 10ML 500 MG in SODIUM CHLORIDE 0.9% 100 ML IV SCH (14:03)
[2019-11-06] MEDS: HYDROCODONE/APAP 7.5MG-325MG 1 EA TAB PO PRN (17:34)
--- NOTE | 2019-11-06 19:32 | NUR ---
RECEIVED PT IN BED AOX3 RT ELBOW WITH DRESSING AND HEMO VAC LEFT UPPER ARM PICC LINE . RESPIRATIONS ARE EVEN AND UNLABORED . CALL LIGHT WITH IN REACH .CONTINUE TO MONITOR
[2019-11-06] MEDS: ZOLPIDEM TARTRATE 10 MG TAB PO PRN (21:30)
[2019-11-07] VITALS (9 sets, daily range): BP systolic 113–137; BP diastolic 67–83
[2019-11-07] MEDS: SODIUM CHLORIDE 0.9% 1000ML 1,000 ML IV SCH ×2 (03:28→16:50)
[2019-11-07] MEDS: HYDROCODONE/APAP 7.5MG-325MG 1 EA TAB PO PRN ×3 (03:29→22:26)
--- NOTE | 2019-11-07 05:14 | NUR ---
PT C/O PAIN DURING THE NIGHT AND GIVEN MORPHINE AND NORCO .PT RESTING .CONTINUE TO MONITOR
--- NOTE | 2019-11-07 07:37 | NUR ---
BEDSIDE REPORT GIVEN TO THE ONCOMING NURSE
[2019-11-07] MEDS: DAPTOMYCIN 500mg 10ML 500 MG in SODIUM CHLORIDE 0.9% 100 ML IV SCH (12:19)
--- NOTE | 2019-11-07 12:58 | Progress Note ---
DATE: SUBJECTIVE: The patient is seen and evaluated. Available labs and notes reviewed. REVIEW OF SYSTEMS: No nausea, vomiting, fever, chills, chest pain, shortness of breath, headache, rash, or dysuria. Right upper extremity, no significant pain and remains elevated and dressed. OBJECTIVE: VITAL SIGNS: Temperature is 98, pulse 80, respirations 18, blood pressure 131/76. GENERAL: Alert and oriented, no acute distress. CV: S1 and S2. CHEST: Equal expansion. Clear to auscultation. ABDOMEN: Soft, nontender. No distention. HEENT: Moist. No pallor. No JVD. EXTREMITIES: Right upper extremity with surgical dressing and elevated. MEDICATIONS: The patient is on Cubicin 500 mg IV piggyback daily. MICROBIOLOGY: No new microbiology studies available. Previous wound culture was MSSA in a patient with penicillin allergies. IMAGING: No new radiology study is available, status post PICC line placement. LABORATORY DATA: No new CBC or BMP available. SEROLOGY: On 11/02/2019, Coronavirus PCR not detected. ASSESSMENT AND PLAN: 1. History of fall with a fracture of right upper extremity. The patient had surgery and also had later on debridement incision and drainage on 11/03/2019 with infected wound with concern osteomyelitis and hardware infection. Culture showed MSSA. The patient has allergies to penicillin. Continue with wound care. Continue with antibiotics. Patient's authorization for outpatient IV antibiotic is seen progress with the office of Dr. Shauna Butler. 2. Please refer to chart for more information. 3. Discussed with Dr. Butler in details. Dictated by Mark Fontenot PA-C (Al) Shauna Butler MD /MODL /[id number]
--- NOTE | 2019-11-07 17:03 | NUR ---
Nutrition Screen Note RD Recommendation for Physician: -Continue regular diet Plan of Care: RD following, monitoring for tolerance and adequacy Nutrition reason for involvement: Length of stay Primary Diagnose(s): fever, postoperative wound infection right elbow PMH: none Ht: 71 in Wt: 225 lb BMI: 31.4 kg/m2 IBW: [address] Assessment: (11/07/19) Chart reviewed. Labs and meds reviewed. Pt is a 34 year old male admitted with fever and postoperative wound infection of right elbow. Pt had a debridement and drainage of right elbow on 11/02. Pt reports a good appetite and it is recorded pt has been consuming 75-100% of meals during admission. Pt stated he usually weighs 225 lbs. No N/V/D/C or chewing/swallowing issues. Will continue to monitor. Current Diet: regular Malnutrition Evaluation (11/07/19) The patient does not meet criteria for a specified degree of malnutrition at this time. Will re-evaluate at follow-up as appropriate. Diet Education Needs Assessment: Diet education not indicated. Nutrition Care Level: low Signed: Eleonora Hatch, RD, LD
--- NOTE | 2019-11-07 19:00 | NUR ---
RECEIVED PATIENT IN BEDSIDE SHIFT REPORT. PATIENT RESTING IN BED AT THIS TIME. MILD PAIN REPORTED, RECENTLY HAD PAIN MEDICATION. NO S&S OF DISTRESS NOTED. HEMOVAC TO R ARM DRAINING SEROSANGUINEOUS FLUID. L PICC RUNNING NS @ 100ML/HR. BED LOCKED IN LOWEST POSITION, SIDE RAILS UPX2, CALL LIGHT IN REACH.
[2019-11-07] MEDS: ZOLPIDEM TARTRATE 10 MG TAB PO PRN (22:27)
[2019-11-08] MEDS: HYDROCODONE/APAP 7.5MG-325MG 1 EA TAB PO PRN ×2 (04:41→11:53)
[2019-11-08] MEDS: SODIUM CHLORIDE 0.9% 1000ML 1,000 ML IV SCH (04:41)
[2019-11-08 05:28] VITALS: BP 125/74
[2019-11-08 08:02] VITALS: BP 126/79
[2019-11-08 08:08] VITALS: BP 125/79
[2019-11-08 11:32] VITALS: BP 125/75
--- NOTE | 2019-11-08 11:49 | Progress Note ---
DATE: SUBJECTIVE: The patient is seen and evaluated. Available labs and notes reviewed. Please refer to chart for more information. REVIEW OF SYSTEMS: No nausea, vomiting, fever, chills, chest pain, shortness of breath, headache, rash, dysuria, or polyuria. PHYSICAL EXAMINATION: VITAL SIGNS: Temperature 98.3, pulse is 75, respirations 16, blood pressure 126/79. GENERAL: Alert and oriented, in no acute distress. CV: S1, S2. CHEST: Equal expansion. Clear to auscultation. No acute distress. ABDOMEN: Soft, nontender. No distention. HEENT: Moist. No pallor. No JVD. EXTREMITIES: Right upper extremity dressed and elevated. MEDICATIONS: Medication list reviewed. From ID point of view, the patient is on daptomycin. LABORATORY STUDIES: White count is 6.7 on 11/05/2019. No new CBC or BMP since then. Wound culture showed MSSA from the right elbow. Blood culture was negative on 11/02/2019. RADIOLOGY: No new radiology studies available. ASSESSMENT AND PLAN: 1. Right upper extremity infected wound, status post I and D with the hardware. 2. Culture as mentioned above. 3. Pain, controlled. 4. Discussed with staff and discussed with the office. We will try to set the patient with outpatient IV antibiotics through his worker's comp and this thing is still pending. I have discussed with the patient and update him on a regular basis. Please refer to chart for more information. Discussed with Dr. Butler in detail. The plan is to give antibiotics for 6 to 8 weeks as an outpatient. Dictated by Mark Fontenot PA-C (Al) Shauna Butler MD /LUISAL /[id number]
[2019-11-08] MEDS: DAPTOMYCIN 500mg 10ML 500 MG in SODIUM CHLORIDE 0.9% 100 ML IV SCH (11:53)
--- NOTE | 2019-11-08 13:56 | NUR ---
MET W THE PT AT THE BEDSIDE. PT STATES HE WANTS TO GO HOME AND WORKER'S COMP TOLD HIM THEY HAD APPROVED HIS HOME IV ABX. CALL TO NICOLE HUTCHISON. STATES SHE RECEIVED AUTH ABOUT AN HOUR AGO AND PT IS OK TO DC. STATES HE CAN COME TO THE OFFICE AT 1130 TOMORROW FOR TEACH AND TO P/U ABX. PT IN AGREEMENT. NOTIFIED RJ CARRASCO. STATES SHE WILL CALL [facility] FOR A DC ORDER.
--- NOTE | 2019-11-08 14:40 | NUR ---
Pt discharged home at this time. Pt was discharged with PICC line in place for extended ABX therapy. Hemovac to right arm was discontinued prior to discharge, minimal drainage noted to site and and gauze placed over area. Pt verbalized understanding of all discharge instructions and follow up appointments.
[2019-11-08] MEDS ORDERED: ONDANSETRON HCL 4 MG ORAL DISINTEGRATING TAB PO PRN (14:45)
== END 2019-11-08 14:39 | disposition home or self-care (01) | DRG 463 ==
LOC: FSED 19:35 → ERHOLD 22:38 → MED/SURG3 23:41
PROVIDERS: ADMIT Internal Medicine; ATTEND Internal Medicine
PROC: 02HV33Z Insertion of Infusion Device into Superior Vena Cava, Percutaneous Approach (ICD-10-PCS; 2019-11-03)
PROC: 0R9L3ZZ Drainage of Right Elbow Joint, Percutaneous Approach (ICD-10-PCS; 2019-11-03)
PROC: 0JBG0ZZ Excision of Right Lower Arm Subcutaneous Tissue and Fascia, Open Approach (ICD-10-PCS; principal; 2019-11-03 13:00)
DX: T84.619A Infection and inflammatory reaction due to internal fixation device of unspecified bone of arm, initial encounter (principal); A41.9 Sepsis, unspecified organism; L03.113 Cellulitis of right upper limb; B95.61 Methicillin susceptible Staphylococcus aureus infection as the cause of diseases classified elsewhere; D64.9 Anemia, unspecified
CPT/HCPCS: 36415; 36569; 71045; 80053; 80202; 81003; 83735; 85025; 85610; 85730; 87040; 87071; 87075; 87186; 87205; 87635; 96374; 96376; 99284; J0690; J1100; J1885; J2001; J2250; J2270; J2405; J3010; J3370; J7030; J7050